=== PATIENT | male | born 1940 | race Caucasian/White ===

== ENCOUNTER 2024-07-14 07:01 | Day surgery (SDC) | payer MEDICARE, OTHER, SELFPAY ==
[2024-07-08 10:53] VITALS: BMI 19.8
[2024-07-14] MEDS: LACTATED RINGERS 1000ML 1,000 ML 50 ML IV (07:43)
[2024-07-14 07:49] VITALS: BP 132/63; PULSE 100; RESP 18; TEMP 36.4; O2SAT 100
--- NOTE | 2024-07-14 08:10 | EXP.ANES.CKL ---
[facility] Disclaimer: The information contained in this section may have been updated after the patient was seen, as this information can be updated by other users. Medical History Thyroid disease Anemia History of COVID-19 Surgical History History of hernia surgery History of cataract surgery History of repair of ACL Hx of rotator cuff surgery Family History Other Breast cancer Heart attack Social History Smoking Status: Former smoker alcohol intake: current substance use type: denies use current occupational status: retired Travel in the last 8 weeks: None [facility] Anesthesia Checklist Patient Identification Patient Identification: Verbal (Name & ) Structural Data Admitted From: Home Planned Operative Procedure/s: egd/colonoscopy NPO Status Verified Time NPO: :25 Airway Assessment Mallampati Score:: Class II C-Spine Mobility Assessed: Yes TMJ Mobility Assessed: Yes Dentition: Good Dentition Neurological Assessment Level of Consciousness: Awake, Alert and Appropriate Anesthesia Plan Anesthesia Risk discussed: Yes Anesthesia Plan: Verified ASA Class: II Anesthesia Type: MAC
[2024-07-14 09:11] VITALS: O2SAT 100
--- NOTE | 2024-07-14 09:20 | EXP.HP ---
History of Present Illness *Admission Date: 07/14/24 *Reason for visit:: Iron deficiency anemia *History of present illness: Mr. Bateman is an 83-year-old gentleman who is here for diagnostic EGD and colonoscopy secondary to iron deficiency anemia. The examination is deemed medically necessary for diagnostic EGD and colonoscopy. The patient has been seen, interviewed and examined prior to the procedure by both myself and the anesthesia provider. [facility] Disclaimer: The information contained in this section may have been updated after the patient was seen, as this information can be updated by other users. Medical History (Updated 07/14/24 @ 09:21 by Wil Eason II, MD) Thyroid disease Anemia History of COVID-19 Surgical History History of hernia surgery History of cataract surgery History of repair of ACL Hx of rotator cuff surgery Family History Other Breast cancer Heart attack Social History (Updated 07/14/24 @ 08:11 by Kai Moore CRNA) Smoking Status: Former smoker alcohol intake: current substance use type: denies use current occupational status: retired Travel in the last 8 weeks: None Have you lived/traveled outside [place] in past 30 days?: No Contact w/someone who lives/traveled outside US past 30 days?: No Exposure to someone with infectious disease in past 14 days?: No Do you have a fever (greater than 100.4 F or 38 C)?: No Have you tested positive for COVID-19: Yes Exposed to someone with COVID-19 in past 14 days?: No Do you have a sore throat?: No Do you have a cough?: No Do you have any weakness?: No Are you experiencing any nausea/vomitting?: No Do you have any diarrhea?: No Are you experiencing any unusual bleeding?: No Do you have any muscle aches/pain?: No Do you have any abdominal pain?: No Are you experiencing loss of taste or smell?: No Review of Systems Review of Systems Review of systems (narrative): Negative *Cardiovascular Comments: Negative *Gastrointestinal Comments: Negative *Genitourinary Comments: Negative *Musculoskeletal Comments: Negative *Neurologic Comments: Negative Meds Home Medications and Allergies Home Medications ?Medication ?Instructions ?Recorded ?Confirmed ?Type atorvastatin 20 mg tablet 20 mg PO DAILY 07/08/24 07/08/24 History levothyroxine 150 mcg tablet 150 mcg PO DAILY 07/08/24 07/08/24 History (Synthroid) lisinopril 20 mg tablet 20 mg PO DAILY 07/08/24 07/08/24 History New Prescriptions to Start Prescriptions: Allergies Allergy/AdvReac Type Severity Reaction Status Date / Time Sulfa (Sulfonamide Allergy Hives Verified 07/14/24 07:48 Antibiotics) Exam Data for Last 24 hours Vital signs and Labs for Last 24 Hours: Temp Pulse Resp BP Pulse Ox O2 Del Method O2 Flow Rate 97.6 F 100 H 18 132/63 100 Nasal Cannula 5 07/14/24 07:49 07/14/24 07:49 07/14/24 07:49 07/14/24 07:49 07/14/24 07:49 07/14/24 09:11 07/14/24 09:11 *Routine HEENT Exam Head: Present normocephalic Eye: Present EOMI and PERRL ENT: Present mucous membranes moist *Routine Neck Exam Neck: Present supple *Routine Respiratory Exam Respiratory: Present CTA bilaterally *Routine Cardiovascular Exam Cardiovascular: Present RRR *Routine Abdominal Exam Abdominal: Present soft and normoactive bowel sounds; Absent tenderness *Routine Rectal Exam Rectal:: deferred *Routine Genitalia Exam Genitalia:: deferred *Routine Extremities Exam Extremities: Absent cyanosis, clubbing or edema *Routine Skin Exam Skin: Present warm; Absent rash *Routine Neurological Exam Neurological: Present alert and oriented X3 Assessment and Plan *Assessment and plan (1) Iron deficiency anemia: Status: Acute Category: Medical Code(s): D50.9 - Iron deficiency anemia, unspecified Plan A/P: 1. Iron deficiency anemia is the preprocedural diagnosis. The patient will be anesthetized/sedated using MAC sedation. The patient has been seen and examined. Cardiac and lung assessment prior to the examination is stable. Proceed with planned EGD and colonoscopy to rule out GI etiology/chronic GI blood loss source of his iron deficiency anemia
--- NOTE | 2024-07-14 09:22 | P.PCN_ITS ---
[facility] Procedure Note Date: 07/14/24 Time: 09:32 Procedure Note:: Upper Endoscopy Procedure Report: Esophagogastroduodenoscopy with cold biopsies, APC ablation and TTS balloon dilation Endoscopost: Wil Eason II, MD Referring Physician: Raoul Cohen MD, [id number], [place] [address] Date of Procedure: July 14, 2024 Equipment: Olympus GIF 190 standard upper endoscope Sedation: MAC sedation Indications: Mr. Oconnor is an 83-year-old gentleman who is here for diagnostic upper endoscopy and colonoscopy secondary to iron deficiency anemia. The patient did have an upper endoscopy with id in the last couple of years. He has had some intermittent dysphagia and heartburn. He does have a hiatal hernia. He reports no use of NSAIDs or anticoagulation. He reports no melena, hematochezia or bright red blood per rectum. He has no abdominal pain. He did have some weight loss which was likely related to his thyroid treatment and his Synthroid was decreased from 200 mcg to 150 mcg daily. Procedure: Prior to the procedure, a history and physical exam was performed, and patient's medications and allergies were reviewed. The risks, benefits and alternatives of the sedation and procedure were discussed with the patient. All questions were answered and informed consent was obtained. The patient was brought to the procedure room. Patient identification and proposed procedure were verified by the physician and the nurse. The patient was placed in a left lateral decubitus position and the scope was passed under direct vision. Throughout the procedure, the patient's blood pressure, pulse, and oxygen saturations were monitored continuously. The upper GI endoscopy was accomplished without difficulty. The patient tolerated the procedure well. Findings: The scope was passed directly into the upper esophagus and advanced to the fourth portion of the duodenum. The post bulbar duodenum and duodenal bulb were normal with normal mucosa and conniventes. There was minimal peptic duodenitis of the bulb. The scope was withdrawn through a normal duodenal bulb and pylorus into the stomach. There was evidence of scant coffee-ground heme in the antrum with a few scattered angiodysplasia/AVMs (GAVE?gastric antral vascular ectasias) and the APC (argon plasma coagulation) was used to coagulate all visible AVMs in the antrum. The body of the stomach was normal. Upon retroflexion, there was a large hiatal hernia. The diaphragmatic hiatus was at 43 cm from the incisors. The gastroesophageal junction and Z-line were at 34 to 35 cm from the incisors leaving in 8 to 9 cm hiatal hernia. There was no paraesophageal component. There was at least 2 shallow linear Sunil's erosions associated with the hernia. Biopsies were taken along the lesser curvature of the stomach to rule out H. pylori. The scope was then withdrawn into the esophagus. There was no evidence of Rutherford's esophagus or reflux esophagitis. There were tertiary contractions and evidence of moderate presbyesophagus. The entire esophagus was dilated to 60 [place]/20 mm with a TTS hydrostatic balloon. There was minimal resistance. The remainder of the esophageal mucosa was normal. 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 Large hiatal hernia (8 to 9 cm) with 2 shallow linear Sunil's erosions 3. Presbyesophagus Plan: I do feel that it is possible that his iron deficiency is related to both GAVE and Sunil's erosions. He is avoiding NSAIDs. I would recommend oral iron replacement. I will follow-up biopsies and I will proceed with diagnostic colonoscopy.
--- NOTE | 2024-07-14 09:54 | HMH.PROCNOTE ---
[facility] Procedure Note Date: 07/14/24 Time: 09:54 Procedure Note:: Colonoscopy Procedure Report: Colonoscopy with cold snare polypectomy Endoscopist: Wil Eason II, MD Referring physician: Raoul Cohen MD, [id number], [place] [address] Date of Procedure: July 14, 2024 Equipment: Olympus 190 variable stiffness pediatric colonoscope Sedation: MAC sedation Indication: Mr. Oconnor is an 83-year-old gentleman who is here for diagnostic colonoscopy secondary to iron deficiency anemia. The patient reports no melena, hematochezia or bright red blood per rectum. He reports no abdominal pain, change in bowel habits or family history of colon cancer. His last colonoscopy was 4 to 5 years ago. He is not on any anticoagulation or NSAIDs. He does have mild renal insufficiency but his lab work is not available. Procedure: Prior to the procedure, a history and physical exam was performed, and patient's medications and allergies were reviewed. The risks, benefits and alternatives of the sedation and procedure were discussed with the patient. All questions were answered and informed consent was obtained. The patient was brought to the procedure room. Patient identification and proposed procedure were verified by the physician and the nurse. The patient was placed in a left lateral decubitus position and the scope was passed under direct vision. Throughout the procedure, the patient's blood pressure, pulse, and oxygen saturations were monitored continuously. The colonoscopy was accomplished without difficulty. The patient tolerated the procedure well. Findings: On digital rectal examination there was normal rectal tone. There were no external hemorrhoids. The prostate was 2-3+, mildly enlarged but smooth, symmetric without nodules. The colonoscope was introduced through the anal canal to the rectum and advanced to the cecum. The ileocecal valve and appendiceal orifice were identified. The scope was advanced a short distance into the ileum which appeared grossly normal. The scope was then withdrawn into the colon. The cecum, ascending and transverse colon and mucosa were grossly normal. There were 2 diminutive polyps (descending x 1 (5 mm) and sigmoid x 1 (3 mm)). These were both removed via cold snare polypectomy. There were scattered diverticuli throughout the descending and sigmoid colon (LEFT colon). The rectum itself was normal. Upon retroflexion within the rectum there were 2 internal hemorrhoids. The preparation was excellent throughout with [place] Preparation Score of 9. The cecal time was 12 minutes. Impression: 1. Diminutive colonic polyps x 2 2. Left-sided diverticulosis 3. Grade 2 internal hemorrhoids Plan: Based upon the findings, he will not require any further preventive/surveillance colonoscopy. There was no etiology for chronic GI blood loss or iron deficiency from the lower digestive tract. I do suspect that this is related to the mild GAVE and possibly linear Sunil's erosions related to the large hiatal hernia. I will discuss the findings with the patient and family. I would recommend Hemoccult testing. If the patient is Hemoccult positive, I would consider video capsule enteroscopy/PillCam. I would continue oral iron supplementation (ferrous sulfate) on a maintenance basis.
[2024-07-14 09:57] VITALS: BP 90/46; PULSE 96; RESP 14; TEMP 36.1; O2SAT 97
[2024-07-14 10:07] VITALS: BP 89/57; PULSE 91; RESP 16; O2SAT 98
[2024-07-14 10:17] VITALS: BP 93/57; PULSE 95; RESP 16; O2SAT 99
[2024-07-14 10:26] VITALS: BP 100/57; PULSE 87; RESP 16; O2SAT 99
== END 2024-07-14 10:30 | disposition home or self-care (01) ==
PROVIDERS: PCP Internal Medicine; Visit Provider Internal Medicine Gastroenterology
PROC: 0DJ08ZZ Inspection of Upper Intestinal Tract, Via Natural or Artificial Opening Endoscopic (ICD-10-PCS; CPT 45378; principal; 2024-07-14 09:00)
DX: D50.9 Iron deficiency anemia, unspecified (principal); K29.80 Duodenitis without bleeding; K44.9 Diaphragmatic hernia without obstruction or gangrene; K31.819 Angiodysplasia of stomach and duodenum without bleeding; K22.89 Other specified disease of esophagus; K25.9 Gastric ulcer, unspecified as acute or chronic, without hemorrhage or perforation; K63.5 Polyp of colon; K57.30 Diverticulosis of large intestine without perforation or abscess without bleeding; K64.1 Second degree hemorrhoids
CPT/HCPCS: 43239; 43249; 43255; 45385; C1726; C2618; J7120